=== PATIENT | male | born 1965 | race Caucasian/White ===

== ENCOUNTER 2018-12-31 00:50 | Inpatient (IN) | payer BC ==
[2018-12-31] MEDS ORDERED: SODIUM CHLORIDE 0.9% 1,000 ML IV STA (01:16)
[2018-12-31] MEDS ORDERED: ONDANSETRON 4 MG/2 ML VIAL IVP STA (01:16)
[2018-12-31 01:34] LABS: Basophils % (A) 0 %; Eosinophils # (A) 0.1 k/uL (0-0.7); Eosinophils % (A) 1 %; HGB 15.4 gm/dL (13.0-17.5); Lymphocytes # (A) 0.9 k/uL (1.0-4.8); Lymphocytes % (A) 7 %; MCH 30.9 pg (25.0-35.0); MCHC 33.5 g/dL (31.0-37.0); MCV 92.2 fL (80.0-100.0); Mean Platelet Volume 7.1; Monocytes # (A) 0.5 k/uL (0-1.0); Monocytes % (A) 4 %; Neutrophils # (A) 11.1 k/uL (1.3-7.7); Neutrophils % (A) 87 %; Platelet Count 266 k/uL (150-450); RBC 4.98 m/uL (4.30-5.90); RDW 13.5 % (11.5-15.5); WBC 12.7 k/uL (3.8-10.6)
[2018-12-31] MEDS ORDERED: MORPHINE SULFATE 4 MG/ML SYRINGE IV STA (01:35)
[2018-12-31 01:46] LABS: ALT 35 U/L (21-72); AST 42 U/L (17-59); African American GFR (CKD) >90 (>60 ml/min/1.73 sqM); Albumin 4.5 g/dL (3.5-5.0); Alkaline Phosphatase 84 U/L (38-126); Anion Gap 11 mmol/L; Blood Urea Nitrogen 22 mg/dL (9-20); Calcium 10.1 mg/dL (8.4-10.2); Carbon Dioxide 23 mmol/L (22-30); Chloride 104 mmol/L (98-107); Glucose 132 mg/dL (74-99); Potassium 4.2 mmol/L (3.5-5.1); Sodium 138 mmol/L (137-145); Total Bilirubin 1.2 mg/dL (0.2-1.3); Total Protein 7.6 g/dL (6.3-8.2)
[2018-12-31 02:08] LABS: Lipase 10954 U/L (23-300)
[2018-12-31 02:30] LABS: Amylase 1402 U/L (30-110)
--- NOTE | 2018-12-31 02:50 | CT ---
EXAM: CT Abdomen and Pelvis With Intravenous Contrast CLINICAL HISTORY: ITS.REASON CT Reason: abdominal pain TECHNIQUE: Axial computed tomography images of the abdomen and pelvis with intravenous contrast. CTDI is 16 mGy and DLP is 832 mGy-cm. This CT exam was performed using one or more of the following dose reduction techniques: automated exposure control, adjustment of the mA and/or kV according to patient size, and/or use of iterative reconstruction technique. COMPARISON: No relevant prior studies available. FINDINGS: Lung bases: No mass. No consolidation. ABDOMEN: Liver: Enlarged. Gallbladder and bile ducts: Unremarkable. Pancreas: Unremarkable. Spleen: Unremarkable. Adrenals: Unremarkable. Kidneys and ureters: Punctate stone in the right kidney. No hydronephrosis. Stomach and bowel: No bowel obstruction. Thickened duodenal wall. Colonic diverticulosis. There is smooth thickening of the sigmoid colonic wall. PELVIS: Appendix: No evidence of appendicitis. Bladder: Unremarkable. Reproductive: Unremarkable. ABDOMEN and PELVIS: Intraperitoneal space: Stranding and free fluid around the duodenum/pancreatic head.. Bones/joints: No acute fractures. Soft tissues: Unremarkable. Vasculature: No abdominal aortic aneurysm. Lymph nodes: No enlarged lymph nodes. IMPRESSION: 1. There is fat stranding and trace free fluid around the duodenum/pancreatic head. The duodenal wall is thickened, most likely infectious/inflammatory duodenitis. However cannot exclude groove pancreatitis given the location of the inflammation. 2. Punctate nonobstructive stone in the right kidney. 3. Hepatomegaly. 4. Colonic diverticulosis. 5. There is smooth thickening of the sigmoid colon without significant inflammatory changes (series 201 image 72). Recommend correlation with recent colonoscopy or consider obtaining colonoscopy to rule out neoplastic process.
[2018-12-31 03:25] LABS: Appearance,Urine Clear (Clear); Bilirubin,Urine Negative (Negative); Blood,Urine Negative (Negative); Color,Urine Yellow; Glucose,Urine (UA) Negative (Negative); Ketones,Urine 4+ (Negative); Leukocyte Esterase,Urine Negative (Negative); Nitrite,Urine Negative (Negative); Protein,Urine Trace (Negative); Urobilinogen,Urine <2.0 mg/dL (<2.0)
[2018-12-31] MEDS ORDERED: HYDROmorphone 0.5 MG/0.5 ML SYRINGE IVP STA (03:28)
--- NOTE | 2018-12-31 03:32 | ED ---
General Adult HPI - General Source: patient, family, RN notes reviewed, old records reviewed Mode of arrival: wheelchair Limitations: physical limitation <Daryl Ruffin - Last Filed: 12/31/18 04:21> <Sebastian Toth - Last Filed: 12/31/18 12:37> - General Chief complaint: Abdominal Pain Stated complaint: Abd Pain Time Seen by Provider: 12/31/18 01:15 - History of Present Illness Initial comments: 53-year-old male patient passed no history of appendectomy presents ED approximately 1 day of epigastric pain, nausea and vomiting. Patient denies any other complaints, denies a chest pain shortness of breath. Patient is poor they did have a small amount of alcohol intake today. Denies any other complaints. Systemic: Pt denies fatigue, fever/chills, rash. Pt denies weakness, night sweats, weight loss. Neuro: Pt denies headache, visual disturbances, syncope or pre-syncope. HEENT: Pt denies ocular discharge or irritation, otalgia, rhinorrhea, pharyngitis or notable lymphadenopathy. Cardiopulmonary: Pt denies chest pain, SOB, heart palpitations, dyspnea on exertion. Abdominal/GI: Pt denies abdominal pain, n/v/d. : Pt denies dysuria, burning w/ urination, frequency/urgency. Denies new onset urinary or bowel incontinence. MSK: Pt denies myalgia, loss of strength or function in extremities. Neuro: Pt denies new onset weakness, paresthesias. (Daryl Ruffin) - Related Data Home Medications Medication Instructions Recorded Confirmed Multivitamins, Thera [Multivitamin 1 tab PO DAILY 12/31/18 12/31/18 (formulary)] Allergies Allergy/AdvReac Type Severity Reaction Status Date / Time No Known Allergies Allergy Verified 12/31/18 07:05 Review of Systems ROS Other: All systems not noted in ROS Statement are negative. <Daryl Ruffin - Last Filed: 12/31/18 04:21> ROS Other: All systems not noted in ROS Statement are negative. <Sebastian Toth - Last Filed: 12/31/18 12:37> ROS Statement: Those systems with pertinent positive or pertinent negative responses have been documented in the HPI. Past Medical History Past Medical History: No Reported History History of Any Multi-Drug Resistant Organisms: None Reported Past Surgical History: Appendectomy Past Psychological History: No Psychological Hx Reported Smoking Status: Never smoker Past Alcohol Use History: None Reported Past Drug Use History: None Reported <Daryl Ruffin - Last Filed: 12/31/18 04:21> - Past Family History Father Additional Family Medical History / Comment(s): Gallstones and kidney stones and multiple family members <Sebastian Toth - Last Filed: 12/31/18 12:37> General Exam Limitations: physical limitation <Daryl Ruffin - Last Filed: 12/31/18 04:21> - General Exam Comments Initial Comments: Constitutional: NAD, AOX3, Pt has pleasant affect. HEENT: NC/AT, trachea midline, neck supple, no lymphadenopathy. Posterior pharynx non erythematous, without exudates. External ears appear normal, without discharge. Mucous membranes moist. Eyes PERRLA, EOM intact. There is no scleral icterus. No pallor noted. Cardiopulmonary: RRR, no murmurs, rubs or gallops, no JVD noted. Lungs CTAB in anterior and posterior lu. No peripheral edema. Abdominal exam: Abdomen soft and non-distended. Abdomen moderately tender to palpation in epigastric region, no other areas of abdominal pain. Bowel sounds active in LLQ. No hepatosplenomegaly. No ecchymosis Neuro: CN II-XII grossly intact. No nuchal rigidity. No raccon eyes, no bowen sign, no hemotympanum. No cervical spinal tenderness. MSK: No posterior calf tenderness bilaterally, homans sign negative bilaterally. Posterior tibialis and radial pulse +2 bilaterally. Sensation intact in upper and lower extremities. Full active ROM in upper and lower extremities, 5/5 stregnth. (Daryl Ruffin) Course Vital Signs 12/31/18 12/31/18 12/31/18 00:58 03:07 07:07 Temperature 97.3 F L Pulse Rate 53 L 84 61 Respiratory 18 18 16 Rate Blood Pressure 147/88 128/87 164/79 O2 Sat by Pulse 98 97 97 Oximetry Medical Decision Making - Lab Data Result diagrams: 12/31/18 01:22 12/31/18 01:22 <Daryl Ruffin - Last Filed: 12/31/18 04:21> - Lab Data Result diagrams: 12/31/18 08:54 12/31/18 08:54 <Sebastian Toth - Last Filed: 12/31/18 12:37> - Medical Decision Making 53-year-old male patient passed no history of appendectomy presents ED approximately 1 day of epigastric pain, nausea and vomiting. Patient denies any other complaints, denies a chest pain shortness of breath. Patient is poor they did have a small amount of alcoholl intake today. Denies any other complaints. Patient vital signs stable, afebrile. Physical exam displayed epigastric tenderness. Laboratory investigations revealed a leukocytosis of 12.7. CMP were not impressive. Lipase elevated at 10,954. Amylase elevated at 1402. UA negative. CT abdomen and pelvis displayed fat stranding near the duodenum states pancreatic head. Secondary pancreatitis. Also noticed CT was treated thickening of the sigmoid colon with recommendation of obtaining colonoscopy rule out neoplastic process. Patient admitted for acute pancreatitis. Case discussed with Dr. Melgar. (Daryl Ruffin) I saw this patient in conjunction with the physician emergency veterinary assistant. I performed independent history and physical exam. Agree with case management. (Sebastian Toth) - Lab Data Lab Results 12/31/18 12/31/18 12/31/18 Range/Units 01:22 01:22 01:22 WBC 12.7 H (3.8-10.6) k/uL RBC 4.98 (4.30-5.90) m/uL Hgb 15.4 (13.0-17.5) gm/dL Hct 46.0 (39.0-53.0) % MCV 92.2 (80.0-100.0) fL MCH 30.9 (25.0-35.0) pg MCHC 33.5 (31.0-37.0) g/dL RDW 13.5 (11.5-15.5) % Plt Count 266 (150-450) k/uL Neutrophils % 87 % Lymphocytes % 7 % Monocytes % 4 % Eosinophils % 1 % Basophils % 0 % Neutrophils # 11.1 H (1.3-7.7) k/uL Lymphocytes # 0.9 L (1.0-4.8) k/uL Monocytes # 0.5 (0-1.0) k/uL Eosinophils # 0.1 (0-0.7) k/uL Basophils # 0.0 (0-0.2) k/uL Sodium 138 (137-145) mmol/L Potassium 4.2 (3.5-5.1) mmol/L Chloride 104 (98-107) mmol/L Carbon Dioxide 23 (22-30) mmol/L Anion Gap 11 mmol/L BUN 22 H (9-20) mg/dL Creatinine 1.06 (0.66-1.25) mg/dL Est GFR (CKD-EPI)AfAm >90 (>60 ml/min/1.73 sqM) Est GFR (CKD-EPI)NonAf 80 (>60 ml/min/1.73 sqM) Glucose 132 H (74-99) mg/dL Plasma Lactic Acid [place] 1.5 (0.7-2.0) mmol/L Calcium 10.1 (8.4-10.2) mg/dL Total Bilirubin 1.2 (0.2-1.3) mg/dL AST 42 (17-59) U/L ALT 35 (21-72) U/L Alkaline Phosphatase 84 (38-126) U/L Total Protein 7.6 (6.3-8.2) g/dL Albumin 4.5 (3.5-5.0) g/dL Amylase 1402 H* (30-110) U/L Lipase 83736 H (23-300) U/L Urine Color Urine Appearance (Clear) Urine pH (5.0-8.0) Ur Specific [place] (1.001-1.035) Urine Protein (Negative) Urine Glucose (UA) (Negative) Urine Ketones (Negative) Urine Blood (Negative) Urine Nitrite (Negative) Urine Bilirubin (Negative) Urine Urobilinogen (<2.0) mg/dL Ur Leukocyte Esterase (Negative) 12/31/18 Range/Units 03:20 WBC (3.8-10.6) k/uL RBC (4.30-5.90) m/uL Hgb (13.0-17.5) gm/dL Hct (39.0-53.0) % MCV (80.0-100.0) fL MCH (25.0-35.0) pg MCHC (31.0-37.0) g/dL RDW (11.5-15.5) % Plt Count (150-450) k/uL Neutrophils % % Lymphocytes % % Monocytes % % Eosinophils % % Basophils % % Neutrophils # (1.3-7.7) k/uL Lymphocytes # (1.0-4.8) k/uL Monocytes # (0-1.0) k/uL Eosinophils # (0-0.7) k/uL Basophils # (0-0.2) k/uL Sodium (137-145) mmol/L Potassium (3.5-5.1) mmol/L Chloride (98-107) mmol/L Carbon Dioxide (22-30) mmol/L Anion Gap mmol/L BUN (9-20) mg/dL Creatinine (0.66-1.25) mg/dL Est GFR (CKD-EPI)AfAm (>60 ml/min/1.73 sqM) Est GFR (CKD-EPI)NonAf (>60 ml/min/1.73 sqM) Glucose (74-99) mg/dL Plasma Lactic Acid [place] (0.7-2.0) mmol/L Calcium (8.4-10.2) mg/dL Total Bilirubin (0.2-1.3) mg/dL AST (17-59) U/L ALT (21-72) U/L Alkaline Phosphatase (38-126) U/L Total Protein (6.3-8.2) g/dL Albumin (3.5-5.0) g/dL Amylase (30-110) U/L Lipase (23-300) U/L Urine Color Yellow Urine Appearance Clear (Clear) Urine pH 8.0 (5.0-8.0) Ur Specific [place] >1.050 H (1.001-1.035) Urine Protein Trace H (Negative) Urine Glucose (UA) Negative (Negative) Urine Ketones 4+ H (Negative) Urine Blood Negative (Negative) Urine Nitrite Negative (Negative) Urine Bilirubin Negative (Negative) Urine Urobilinogen <2.0 (<2.0) mg/dL Ur Leukocyte Esterase Negative (Negative) Disposition Is patient prescribed a controlled substance at d/c from ED?: No <Daryl Ruffin - Last Filed: 12/31/18 04:21> <Sebastian Toth - Last Filed: 12/31/18 12:37> Clinical Impression: Acute pancreatitis Disposition: ADMITTED IP TO THIS HOSP Condition: Serious
[2018-12-31] MEDS ORDERED: NALOXONE 0.4 MG/ML 1 ML VIAL IV PRN (03:33)
[2018-12-31] MEDS ORDERED: MORPHINE SULFATE 4 MG/ML SYRINGE IV PRN (03:40)
[2018-12-31] MEDS: ONDANSETRON 4 MG/2 ML VIAL IVP PRN ×2 (03:47→11:05)
[2018-12-31 03:48] LABS: Specific Gravity,Urine >1.050 (1.001-1.035)
[2018-12-31] MEDS ORDERED: LORazepam 2 MG/ML INJ IV PRN ×3 (04:09)
[2018-12-31] MEDS ORDERED: THIAMINE 100 MG/ML 2 ML VIAL IM STA (04:09)
[2018-12-31] MEDS ORDERED: HYDROmorphone 1 MG/ML 1 ML SYRINGE IVP STA (04:36)
[2018-12-31] MEDS: SODIUM CHLORIDE 0.9% 1,000 ML IV SCH ×3 (04:40→14:37)
--- NOTE | 2018-12-31 04:58 | P.HPIM ---
History of Present Illness H&P Date: 12/31/18 Patient is a 53-year-old male with no significant PMH who presents to the ED for sudden onset of epigastric abdominal pain with nausea and vomiting. The patient reports that he was in his usual state of health when he suddenly developed the 10 out of 10 burning like epigastric pain, nonradiating, with associated nausea and 3 episodes of vomiting. He notes that he has never had such symptoms befo re. The pain started shortly after he had his dinner yesterday at 6 PM. The patient strongly denied excessive alcohol use and reports drinking upwards of one shot or 1 beer daily. He further notes a very strong family history of gallstones though notes that he was never diagnosed with cholelithiasis. He otherwise denied chest pain, shortness of breath, fever, chills, diarrhea, or sick contacts. At time of interview, the patient reported continued abdominal pain, improved to 4 out of 10 with morphine and Dilaudid. The patient underwent an extensive evaluation in the ED with CT abdomen and pelvis revealing fat stranding of the pancreatic head consistent with pancreatitis, along with smooth thickening of the sigmoid colon and hepatomegaly. Laboratory evaluation revealed a lipase level of 10,954, WBC 12.7, hemoglobin 15.4, creatinine 1.06, and glucose 132. The patient is being admitted to the medicine service for acute pancreatitis. Review of Systems Pertinent positives and negatives as discussed in HPI, a complete review of systems was performed and all other systems are negative. Past Medical History Past Medical History: No Reported History History of Any Multi-Drug Resistant Organisms: None Reported Past Surgical History: Appendectomy Past Psychological History: No Psychological Hx Reported Smoking Status: Never smoker Past Alcohol Use History: None Reported Past Drug Use History: None Reported - Past Family History Father Additional Family Medical History / Comment(s): Gallstones and kidney stones and multiple family members Medications and Allergies Home Medications Medication Instructions Recorded Confirmed Type No Known Home Medications 12/31/18 12/31/18 History Allergies Allergy/AdvReac Type Severity Reaction Status Date / Time No Known Allergies Allergy Verified 12/31/18 01:03 Physical Exam Vitals: Vital Signs Temp Pulse Resp BP Pulse Ox 12/31/18 03:07 84 18 128/87 97 12/31/18 00:58 97.3 F L 53 L 18 147/88 98 Intake and Output 12/30/18 12/30/18 12/31/18 14:59 22:59 06:59 Other: Weight 88.451 kg General: non toxic, in moderate distress from pain, appears at stated age, normal weight Derm: no unusual rashes/lesions no unusual ecchymoses, warm, dry Head: atraumatic, normocephalic, symmetric Eyes: EOMI, no lid lag, anicteric sclera, pupils equal round reactive to light ENT: Nose and ears atraumatic, no thrush, no pharyngeal erythema Neck: No thyromegaly, no cervical lymphadenopathy, trachea midline, supple Mouth: no lip lesion, mucus membranes moist Cardiovascular: S1S2 reg, no murmur, positive posterior tibial pulse bilateral, no edema, capillary refill less than 2 seconds Lungs: CTA bilateral, no rhonchi, no rales , no accessory muscle use Abdominal: soft, epigastric severe tenderness palpation, no guarding, no appreciable organomegaly, normal bowel sounds, no right upper quadrant tenderness Ext: no gross muscle atrophy, muscle strength 5 out of 5 in all 4 extremities grossly, no contractures, Neuro: CN II-XI grossly intact, light touch intact all 4 extremities, finger to nose within normal limits, Psych: Alert, oriented, appropriate affect Results CBC & Chem 7: 12/31/18 01:22 12/31/18 01:22 Labs: Abnormal Lab Results - Last 24 Hours (Table) 12/31/18 12/31/18 12/31/18 Range/Units 01:22 01:22 03:20 WBC 12.7 H (3.8-10.6) k/uL Neutrophils # 11.1 H (1.3-7.7) k/uL Lymphocytes # 0.9 L (1.0-4.8) k/uL BUN 22 H (9-20) mg/dL Glucose 132 H (74-99) mg/dL Amylase 1402 H* (30-110) U/L Lipase 26684 H (23-300) U/L Ur Specific [place] >1.050 H (1.001-1.035) Urine Protein Trace H (Negative) Urine Ketones 4+ H (Negative) Assessment and Plan Plan: Acute pancreatitis, more likely gallstone related as opposed to alcohol -Nothing by mouth for now -Continue with Dilaudid [id number] and when necessary -GI consult -Monitor lipase levels -Continue with significant IV hydration Small thickening of sigmoid colon -Colonoscopy recommended -Patient may receive it as an outpatient Leukocytosis, likely stress related -We'll monitor for now DVT prophylaxis -Heparin The patient is admitted with an anticipated greater than 2 midnight stay for evaluation of pancreatitis. CODE STATUS:Full Code Discussed with: Patient, Anticipated discharge date: 01/03/[address]: Home A total of 45 minutes was spent on the care of this complex patient more than 50% of the time was spent in counseling and care coordination.
[2018-12-31] MEDS: HYDROmorphone 1 MG/ML 1 ML SYRINGE IVP PRN ×5 (06:55→22:15)
[2018-12-31] MEDS: HEPARIN SODIUM,PORCINE 5,000 UNIT/ML 1 ML VIAL SQ SCH ×2 (09:25→16:58)
[2018-12-31 10:16] LABS: HCT 44.4 % (39.0-53.0); HGB 14.4 gm/dL (13.0-17.5); MCH 30.5 pg (25.0-35.0); MCHC 32.4 g/dL (31.0-37.0); MCV 94.1 fL (80.0-100.0); Platelet Count 253 k/uL (150-450); RBC 4.72 m/uL (4.30-5.90); RDW 13.6 % (11.5-15.5); WBC 10.1 k/uL (3.8-10.6)
[2018-12-31 10:40] LABS: ALT 29 U/L (21-72); AST 31 U/L (17-59); African American GFR (CKD) >90 (>60 ml/min/1.73 sqM); Albumin 3.9 g/dL (3.5-5.0); Alkaline Phosphatase 66 U/L (38-126); Anion Gap 6 mmol/L; Blood Urea Nitrogen 19 mg/dL (9-20); Calcium 9.3 mg/dL (8.4-10.2); Carbon Dioxide 27 mmol/L (22-30); Chloride 106 mmol/L (98-107); Glucose 127 mg/dL (74-99); Magnesium 1.9 mg/dL (1.6-2.3); Sodium 139 mmol/L (137-145); Total Bilirubin 0.9 mg/dL (0.2-1.3); Total Protein 6.7 g/dL (6.3-8.2)
--- NOTE | 2018-12-31 12:55 | P.CONS ---
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 Intermittent nausea vomiting without hematemesis but he's or melena. No history of peptic ulcer disease or EGD. Patient states in the past when he had acute appendicitis there was some concern for possible underlying Crohn's disease. He follows engineer of system development Dr. Ferro as had multiple colonoscopies with him all have supported no underlying IBD diagnosis. Last colonoscopy was 3 months ago and reported as normal with no polypectomies. Colonic diverticulosis. No aspirin and NSAIDs alcohol. No history of autoimmune disorders. No history of weight loss. Appetite has been diminished over the last month. Heartburn is relieved with Tums. No history of pancreatitis. Admission white count 12.7 presently 10.1. Hemoglobin 15.4. Platelet 266. BUN 22. Creatinine 1.0. LFTs normal. Amylase 1402. Lipase 10,954. CT abdomen and pelvis fat stranding trace fluid around the duodenum pancreatic head. Duodenal wall thickening most likely infectious inflammatory duodenitis however groove pancreatitis cannot be excluded. Colonic diverticulosis. Smooth thickening of the sigmoid colon without significant inflammatory changes. Review of Systems Constitutional: Denies fever, chills, sweats, weight gain, or loss. HEENT: Negative for migraines, blurred vision or loss, earaches, drainage, tinnitus, oral mucosal lesions, dysphagia, or odynophagia. Cardiac: Negative for chest pain, arrhythmias, or palpitation. Respiratory: Negative for shortness of breath, hemoptysis, cough, or sputum production. Gastrointestinal: See HPI for pertinent findings. Genitourinary: Negative for hematuria, urgency, frequency, polyuria, dysuria, or penile discharge. Musculoskeletal: Negative for muscle aches, swelling, arthritis, and arthralgias. Neurologic: Negative for stroke or TIA. Endocrine: Negative for thyroid problems. Skin: Negative for rash or itching. Psychiatric: Negative history for depression and anxiety Past Medical History Past Medical History: No Reported History Additional Past Medical History / Comment(s): IBS History of Any Multi-Drug Resistant Organisms: None Reported Past Surgical History: Appendectomy Past Psychological History: No Psychological Hx Reported Smoking Status: Former smoker Past Alcohol Use History: Occasional Additional Past Alcohol Use History / Comment(s): Drinks alcohol 2-3x weekly per Past Drug Use History: None Reported - Past Family History Father Additional Family Medical History / Comment(s): Gallstones and kidney stones and multiple family members Medications and Allergies Home Medications Medication Instructions Recorded Confirmed Type Multivitamins, Thera [Multivitamin 1 tab PO DAILY 12/31/18 12/31/18 History (formulary)] Allergies Allergy/AdvReac Type Severity Reaction Status Date / Time No Known Allergies Allergy Verified 12/31/18 07:05 Physical Exam Vitals: Vital Signs Temp Pulse Pulse Resp BP BP Pulse Ox 12/31/18 07:42 97.1 F L 51 L 16 112/62 99 12/31/18 07:07 61 16 164/79 97 12/31/18 03:07 84 18 128/87 97 12/31/18 00:58 97.3 F L 53 L 18 147/88 98 Intake and Output 12/30/18 12/31/18 12/31/18 22:59 06:59 14:59 Other: Weight 88.451 kg General appearance: The patient is alert, oriented, in no acute distress. HET: Head is normocephalic and atraumatic. Pupils are equal and reactive. Orop harynx is clear without lesions. Neck: Supple without lymphadenopathy. Trachea midline. Heart: S1 S2. Regular rate and rhythm. Lungs: No crackles or wheezes are heard. Abdomen: Soft, moderate tenderness to the mid epigastrium, nondistended with bowel sounds. No peritoneal signs. No palpable organomegaly or masses. Extremities: Normal skin color and turgor. No cyanosis, rash, ulceration, club marisa, or edema. Radial and pedal pulses are 2/4 bilaterally. Neurological: No focal deficits. Strength and sensation are grossly intact. Results CBC & Chem 7: 12/31/18 08:54 12/31/18 08:54 Labs: Abnormal Lab Results - Last 24 Hours (Table) 12/31/18 12/31/18 12/31/18 Range/Units 01:22 01:22 03:20 WBC 12.7 H (3.8-10.6) k/uL Neutrophils # 11.1 H (1.3-7.7) k/uL Lymphocytes # 0.9 L (1.0-4.8) k/uL BUN 22 H (9-20) mg/dL Glucose 132 H (74-99) mg/dL Amylase 1402 H* (30-110) U/L Lipase 14642 H (23-300) U/L Ur Specific [place] >1.050 H (1.001-1.035) Urine Protein Trace H (Negative) Urine Ketones 4+ H (Negative) 12/31/18 Range/Units 08:54 WBC (3.8-10.6) k/uL Neutrophils # (1.3-7.7) k/uL Lymphocytes # (1.0-4.8) k/uL BUN (9-20) mg/dL Glucose 127 H (74-99) mg/dL Amylase (30-110) U/L Lipase (23-300) U/L Ur Specific [place] (1.001-1.035) Urine Protein (Negative) Urine Ketones (Negative) CT scan - abdomen: report reviewed (Dr. Casey) Assessment and Plan (1) Acute pancreatitis Current Visit: Yes Status: Acute Code(s): K85.90 - ACUTE PANCREATITIS WITHOUT NECROSIS OR INFECTION, UNSP SNOMED Code(s): 166064256 Plan: 1. Protonix 40 mg IV twice daily. Nothing by mouth except medications. Daily CBC CMP amylase lipase. Will check triglycerides, MAN, IgG subclass 1-4 for autoimmune evaluation. Proceed with EGD evaluation tomorrow to rule out underlying peptic ulcer disease. IV hydration. Supportive measures. The engineer of system development has discussed the risks, benefits and alternative therapies for the above-mentioned procedure and for both sedation/analgesia as well as necessary blood product administration, if indicated, as they pertain to this patient. The patient has indicated understanding and acceptance of the risks and procedures discussed. Thank you for this kind referral and the opportunity to participate in the care of your patient. This consultation was discussed with Dr. Casey. The impression and plan of care have been directed as dictated.
[2018-12-31] MEDS: PANTOPRAZOLE 40 MG/10 ML VIAL IVP SCH (13:14)
[2018-12-31 13:32] LABS: Triglycerides 39 mg/dL (<150)
[2018-12-31 13:42] LABS: Amylase 647 U/L (30-110)
[2018-12-31 13:53] LABS: Lipase 4553 U/L (23-300)
--- NOTE | 2018-12-31 14:29 | US ---
EXAMINATION TYPE: US abdomen limited DATE OF EXAM: 12/31/2018 COMPARISON: CT CLINICAL HISTORY: pancreatitis. EXAM MEASUREMENTS: Liver Length: 12.9 cm Gallbladder Wall: 0.3 cm CBD: 0.5 cm Right Kidney: 11.7 x 4.4 x 5.5 cm Pancreas: Tail obscured by overlying bowel gas Liver: hyperechoic round structure measuring 1.3 x 1.1 x 1.1cm Gallbladder: probable polyp measuring 0.3cm, not seen in LLD Evidence for sonographic Albarran's sign: no CBD: wnl Right Kidney: wnl IMPRESSION: 1. There is a hyperechoic structure within the liver measuring 1.3 cm which may represent a hemangiom a. This could be correlated with MRI scan with hemangioma protocol. 2. Probable tiny gallbladder polyp. 3. Pancreas is obscured by bowel gas.
[2018-12-31] MEDS: THIAMINE 100 MG TAB PO SCH ×2 (16:58→18:19)
[2019-01-01] MEDS: PANTOPRAZOLE 40 MG/10 ML VIAL IVP SCH ×3 (00:26→19:54)
[2019-01-01] MEDS: SODIUM CHLORIDE 0.9% 1,000 ML IV SCH ×6 (00:28→23:25)
[2019-01-01] MEDS: HEPARIN SODIUM,PORCINE 5,000 UNIT/ML 1 ML VIAL SQ SCH ×4 (00:34→23:25)
[2019-01-01] MEDS: HYDROmorphone 1 MG/ML 1 ML SYRINGE IVP PRN ×2 (02:30→05:47)
[2019-01-01] MEDS: ONDANSETRON 4 MG/2 ML VIAL IVP PRN ×2 (04:45→23:34)
[2019-01-01] MEDS: THIAMINE 100 MG TAB PO SCH ×2 (08:30→16:03)
[2019-01-01 09:21] LABS: ALT 29 U/L (21-72); AST 29 U/L (17-59); African American GFR (CKD) >90 (>60 ml/min/1.73 sqM); Albumin 3.3 g/dL (3.5-5.0); Alkaline Phosphatase 56 U/L (38-126); Anion Gap 5 mmol/L; Blood Urea Nitrogen 18 mg/dL (9-20); Calcium 8.6 mg/dL (8.4-10.2); Carbon Dioxide 26 mmol/L (22-30); Chloride 109 mmol/L (98-107); Glucose 93 mg/dL (74-99); Potassium 3.8 mmol/L (3.5-5.1); Sodium 140 mmol/L (137-145); Total Bilirubin 0.6 mg/dL (0.2-1.3); Total Protein 5.9 g/dL (6.3-8.2)
--- NOTE | 2019-01-01 10:52 | P.PN ---
Subjective Progress Note Date: 01/01/19 Principal diagnosis: pancreatitis Patient was seen and examined. No acute events overnight. Patient reports slightly improved abdominal pain, 4-5 out of 10 in severity. Comes in waves, can be 10 out of 10 at its peak. Patient also reports nausea but no vomiting. Currently nothing by mouth for EGD scheduled for 12 PM. He denies chest pain, shortness of breath or palpitations. No fever or chills. Objective - Vital Signs Vital signs: Vital Signs Temp 97.8 F 01/01/19 06:33 Pulse 50 L 01/01/19 06:33 Resp 17 01/01/19 06:33 BP 138/78 01/01/19 06:33 Pulse Ox 97 01/01/19 06:33 Intake & Output 12/31/18 01/01/19 01/01/19 18:59 06:59 18:59 Intake Total 0 Output Total 1 Balance -1 Intake: Oral 0 Output: Emesis 1 Other: # Voids 3 1 - Exam General: [non toxic], [no distress], [appears at stated age] Derm: [warm], [dry] Head: [atraumatic], [normocephalic], [symmetric] Eyes: [EOMI], [no lid lag], [anicteric sclera] Mouth: [no lip lesion], [mucus membranes moist] Cardiovascular: [S1S2 reg], [bradycardia], [positive DP pulse bilateral], Lungs: [CTA bilateral], [no rhonchi, no rales] , [no accessory muscle use] Abdominal: [soft], [tenderness to palpation of the epigastric area without rebound], [no guarding], [no appreciable organomegaly] Ext: [no gross muscle atrophy], [no edema], [no contractures] Neuro: [no focal neuro deficits] Psych: [Alert], [oriented], [appropriate affect] - Labs CBC & Chem 7: 12/31/18 08:54 01/01/19 08:14 Labs: Abnormal Lab Results - Last 24 Hours (Table) 12/31/18 12/31/18 Range/Units 08:54 08:54 Glucose 127 H (74-99) mg/dL Amylase 647 H* (30-110) U/L Lipase 4553 H (23-300) U/L Assessment and Plan Assessment: Assessment and Plan Acute pancreatitis Thickening of the sigmoid colon Amylase 1402-647, lipase 4553-647. LFT shows no obstruction. CT abdomen pelvis shows duodenal wall thickening, hepatomegaly, diverticulosis, smooth thickening of the sigmoid colon. GI consulted, plans for EGD to evaluate for PUD today. Plans: Start Dilaudid 0.5 mg IV every 2 hours as needed for severe pain. Zofran as needed for nausea and vomiting. Start Protonix IV. Continue normal saline at 180 mL per hour. Follow GI recommendations. Has had colonoscopy in the outpatient setting. Follows GI for surveillance. Plans: Follow GI consult Plans for EGD. Hopefully would be able to advance diet to clear liquids after EGD. Patient is pending clinical improvement. Likely DC in 2-3 days.
[2019-01-01] MEDS: HYDROmorphone 0.5 MG/0.5 ML SYRINGE IVP PRN ×5 (10:56→21:57)
[2019-01-01 11:14] LABS: IgG Subclass 3 44.4 mg/dL (11.0-85.0); IgG Subclass 4 19.5 mg/dL (3.0-175.0)
[2019-01-01] MEDS ORDERED: LIDOCAINE 1% INJ 10MG/ML (20 ML MDV) ONE (11:32)
[2019-01-01] MEDS ORDERED: GLYCOPYRROLATE 0.2 MG/ML 2 ML VIAL ONE (11:32)
[2019-01-01] MEDS ORDERED: PROPOFOL 10 MG/ML 20 ML VIAL IV ONE (11:32)
[2019-01-01] MEDS ORDERED: IV FLUID CONTINUATION 1,000 ML IV ONE ×2 (11:33)
--- NOTE | 2019-01-01 12:10 | P.PCN ---
Date of Procedure: 01/01/19 Procedure(s) Performed: Procedure: Esophagogastroduodenoscopy. Preoperative diagnosis: Acute pancreatitis and abnormal CT of the abdomen, rule out penetrating ulcer. Postoperative diagnosis: 1. Small sliding hiatal hernia with no obvious esophagitis or complicated reflux disease. 2. Minimal duodenitis with no evidence of ulcers or other pathology. Preparation and sedation: Was provided by anesthesia. Brief clinical history: The patient is a 53-year-old male presents to the hospital with acute epigastric upper abdominal pain associated with heartburn and indigestion-type symptoms for 1 month. Intermittent nausea, vomiting without hematemesis. No history of peptic ulcer disease or EGD. Admission white count 12.7 presently 10.1. Hemoglobin 15.4. Platelet 266. BUN 22. Creatinine 1.0. LFTs normal. Amylase 1402. Lipase 10,954. No aspirin and NSAIDs alcohol. No history of autoimmune disorders. No history of weight loss. Appetite has been diminished over the last month. Heartburn is relieved with Tums. No history of pancreatitis. CT abdomen and pelvis showed fat stranding, trace fluid around the duodenum pancreatic head. Duodenal wall thickening most likely infectious/ inflammatory duodenitis, however, groove pancreatitis cannot be excluded according to radiologist. Colonic diverticulosis. Smooth thickening of the sigmoid colon without significant inflammatory changes. Other details are summarized in the history and physical and dictated consultation and progress notes. This evaluation is to rule out penetrating ulcer. Procedure: With the patient on his left lateral decubitus position and after informed consent and adequate sedation, I passed the Olympus-GIF H190 video upper endoscope through the cricopharyngeus down the esophagus. There was a small sliding hiatal hernia with no obvious esophagitis or complicated reflux disease. The endoscope was then passed into the stomach which was insufflated with air and inspected in detail including the retroflex view in the cardia. No obvious abnormalities were seen. Pyloric channel did not show any ulcers. D uodenal bulb showed minimal erythema but no ulcers or erosions. Post bulbar area and descending duodenum appeared within normal limits. I did not see any ulcers or any inflammatory or infectious areas as suggested on CT. No biopsies were indicated then the endoscope was withdrawn. The patient tolerated the procedure well. Plan: The patient was reassured and I discussed with his family. At this time, the etiology of his pancreatitis cannot be ascribed to penetrating ulcer. Other etiologies including autoimmune pancreatitis would have to be kept in the consideration. We will continue to follow with you with interest.
[2019-01-02] MEDS: HYDROmorphone 0.5 MG/0.5 ML SYRINGE IVP PRN ×3 (00:17→07:21)
[2019-01-02] MEDS: SODIUM CHLORIDE 0.9% 1,000 ML IV SCH ×4 (04:53→21:25)
[2019-01-02] MEDS: ONDANSETRON 4 MG/2 ML VIAL IVP PRN (07:21)
[2019-01-02] MEDS: HEPARIN SODIUM,PORCINE 5,000 UNIT/ML 1 ML VIAL SQ SCH ×2 (07:22→15:11)
[2019-01-02] MEDS: PANTOPRAZOLE 40 MG/10 ML VIAL IVP SCH ×2 (07:22→21:23)
[2019-01-02] MEDS: THIAMINE 100 MG TAB PO SCH ×2 (07:22→16:29)
[2019-01-02] MEDS ORDERED: ONDANSETRON 4 MG/2 ML VIAL IVP PRN (09:27)
--- NOTE | 2019-01-02 09:41 | P.PN ---
Subjective Progress Note Date: 01/02/19 Principal diagnosis: pancreatitis Patient was seen and examined. No acute events overnight. Patient reports mild improvement in his pain. Abdominal pain is 3-5 out of 10 in severity with current pain regimen. Complains of waves of abdominal pain associated with intense nausea. States that he gets very nauseous when eating clear liquids. He denies any fever or chills. He denies any chest pain, shortness of breath or palpitations. Objective - Vital Signs Vital signs: Vital Signs Temp 97.7 F 01/02/19 05:00 Pulse 54 L 01/02/19 05:00 Resp 18 01/02/19 08:00 BP 128/78 01/02/19 05:00 Pulse Ox 96 01/02/19 05:00 Intake & Output 01/01/19 01/02/19 01/02/19 18:59 06:59 18:59 Intake Total 400 1000 Balance 400 1000 Intake: IV 400 Oral 1000 Other: # Voids 1 2 - Exam General: [non toxic], [no distress], [appears at stated age] Derm: [warm], [dry] Head: [atraumatic], [normocephalic], [symmetric] Eyes: [EOMI], [no lid lag], [anicteric sclera] Mouth: [no lip lesion], [mucus membranes moist] Cardiovascular: [S1S2 reg], [bradycardia], [positive DP pulse bilateral], Lungs: [CTA bilateral], [no rhonchi, no rales] , [no accessory muscle use] Abdominal: [soft], [tenderness to palpation of the epigastric area without rebound, improved], [no guarding], [no appreciable organomegaly] Ext: [no gross muscle atrophy], [no edema], [no contractures] Neuro: [no focal neuro deficits] Psych: [Alert], [oriented], [appropriate affect] - Labs CBC & Chem 7: 12/31/18 08:54 01/01/19 08:14 Labs: Abnormal Lab Results - Last 24 Hours (Table) 01/01/19 Range/Units 08:14 Lipase 810 H (23-300) U/L Assessment and Plan Assessment: Assessment and Plan Acute pancreatitis Thickening of the sigmoid colon Amylase 1402-647, lipase 4553-810. LFT shows no obstruction. CT abdomen pelvis shows duodenal wall thickening, hepatomegaly, diverticulosis, smooth thickening of the sigmoid colon. GI consulted, underwent EGD yesterday, small hiatal hernia and duodenal erythema seen. Plans: Increase Dilaudid 1 mg IV every 3 hours as needed for severe pain. Change Zofran from every 8 hours to every 6 hours. continue Protonix IV. Continue normal saline at 180 mL per hour. Clear liquid diet and advance. Follow GI recommendations. Has had colonoscopy in the outpatient setting. Follows GI for surveillance. Plans: Follow GI consult Patient is pending clinical improvement. Likely DC in 2-3 days.
[2019-01-02] MEDS: HYDROmorphone 1 MG/ML 1 ML SYRINGE IVP PRN ×2 (09:57→15:11)
[2019-01-03] MEDS: HEPARIN SODIUM,PORCINE 5,000 UNIT/ML 1 ML VIAL SQ SCH ×2 (00:13→08:19)
[2019-01-03] MEDS: HYDROmorphone 1 MG/ML 1 ML SYRINGE IVP PRN (04:52)
[2019-01-03] MEDS: SODIUM CHLORIDE 0.9% 1,000 ML IV SCH ×2 (04:53→09:19)
[2019-01-03] MEDS: PANTOPRAZOLE 40 MG/10 ML VIAL IVP SCH (08:19)
[2019-01-03] MEDS: THIAMINE 100 MG TAB PO SCH (08:19)
--- NOTE | 2019-01-03 12:24 | P.DS ---
Providers Date of admission: 12/31/18 04:05 Expected date of discharge: 01/03/19 Attending physician: Martha Heredia MD Consults: 12/31/18 03:33 Consult Physician Stat Consulting Provider: Goyo Casey Consult Reason/Comments: acute pancreatitis Do you want consulting provider notified?: Yes Primary care physician: Mikala [facility] Course: Patient is a 53-year-old male with no significant PMH who presents to the ED for sudden onset of epigastric abdominal pain with nausea and vomiting. The patient reports that he was in his usual state of health when he suddenly developed the 10 out of 10 burning like epigastric pain, nonradiating, with associated nausea and 3 episodes of vomiting. He notes that he has never had such symptoms before. The pain started shortly after he had his dinner yesterday at 6 PM. The patient strongly denied excessive alcohol use and reports drinking upwards of one shot or 1 beer daily. He further notes a very strong family history of gallstones though notes that he was never diagnosed with cholelithiasis. He otherwise denied chest pain, shortness of breath, fever, chills, diarrhea, or sick contacts. At time of interview, the patient reported continued abdominal pain, improved to 4 out of 10 with morphine and Dilaudid. The patient underwent an extensive evaluation in the ED with CT abdomen and pelvis revealing fat stranding of the pancreatic head consistent with pancreatitis, along with smooth thickening of the sigmoid colon and hepatomegaly. Laboratory evaluation revealed a lipase level of 10,954, WBC 12.7, hemoglobin 15.4, creatinine 1.06, and glucose 132. The patient is being admitted to the medicine service for acute pancreatitis. With regard to his pancreatitis, amylase trended down from 1402 08/20/1946. Lipase trended down from 4553-810. LFT showed no obstruction. CT of the abdomen pelvis showed duodenal thickening, hepatomegaly, diverticulosis and smooth thickening of the sigmoid colon. Gastroenterology was consulted and recommended EGD to exclude peptic ulcer disease as cause of pancreatitis. EGD showed small hiatal hernia and duodenal erythema. Patient's pain was controlled with Dilaudid 1 mg IV every 3 hours as needed for severe pain. He was given Zofran for nausea and vomiting. He was given Protonix IV. Patient was given normal saline at 180 mL per hour. Patient was given clear liquid diet and advance. Patient was seen and examined. No acute events overnight. Patient reports incredible improvement in his abdominal pain since the last couple of days. Pain is 0 out of 10, required no Dilaudid overnight. He denies any nausea or vomiting. Requesting a normal diet. Would like to go home. He denies any chest pain, shortness of breath or palpitations. General: [non toxic], [no distress], [appears at stated age] Derm: [warm], [dry] Head: [atraumatic], [normocephalic], [symmetric] Eyes: [EOMI], [no lid lag], [anicteric sclera] Mouth: [no lip lesion], [mucus membranes moist] Cardiovascular: [S1S2 reg], [bradycardia], [positive DP pulse bilateral], Lungs: [CTA bilateral], [no rhonchi, no rales] , [no accessory muscle use] Abdominal: [soft], [nontender to palpation], [no guarding], [no appreciable organomegaly] Ext: [no gross muscle atrophy], [no edema], [no contractures] Neuro: [no focal neuro deficits] Psych: [Alert], [oriented], [appropriate affect] Assessment and Plan Acute pancreatitis Thickening of the sigmoid colon Amylase 1402-647, lipase 4553-810. LFT shows no obstruction. CT abdomen pelvis shows duodenal wall thickening, hepatomegaly, diverticulosis, smooth thickening of the sigmoid colon. GI consulted, underwent EGD yesterday, small hiatal hernia and duodenal erythema seen. Plans: Increase Dilaudid 1 mg IV every 3 hours as needed for severe pain. Change Zofran from every 8 hours to every 6 hours. Continue Protonix IV. Continue normal saline at 180 mL per hour. Clear liquid diet and advance. Follow GI recommendations. Has had colonoscopy in the outpatient setting. Follows GI for surveillance. Plans: Follow GI consult Patient is pending clinical improvement. Likely DC today if able to tolerate soft diet. Pertinent Studies: CT abdomen and pelvis, abdominal ultrasound Procedures: Upper endoscopy Patient Condition at Discharge: Stable Plan - Discharge Summary Discharge Rx Participant: No New Discharge Prescriptions: New HYDROcodone/APAP 10-325MG [[place] 10-325] 1 tab PO Q4HR PRN 3 Days #18 tab PRN Reason: Severe Pain Continue Multivitamins, Thera [Multivitamin (formulary)] 1 tab PO DAILY Discharge Medication List Multivitamins, Thera [Multivitamin (formulary)] 1 tab PO DAILY 12/31/18 [History] HYDROcodone/APAP 10-325MG [[place] 10-325] 1 tab PO Q4HR PRN 3 Days #18 tab 01/03/19 [Rx] Follow up Appointment(s)/Referral(s): Mikala Salas MD [Primary Care Provider] - 1-2 days Sanford Hummel MD [STAFF PHYSICIAN] - 1 Week Activity/Diet/Wound Care/Special Instructions: Diet: Soft Follow-up with PCP within 1-2 days of discharge. Follow-up with gastroenterology within 1 week of discharge. Take all medications as advised. Discharge Disposition: HOME SELF-CARE
[2019-01-03 13:35] VITALS: BP 135/85; PULSE 62; RESP 16; TEMP 98.8
== END 2019-01-03 16:21 | disposition home or self-care (01) | DRG 440 ==
LOC: EC 00:50 → 4MS4W 04:05
PROVIDERS: ADMIT Internal Medicine; ATTEND Internal Medicine
PROC: 0DJ08ZZ Inspection of Upper Intestinal Tract, Via Natural or Artificial Opening Endoscopic (ICD-10-PCS; principal; 2019-01-01 12:10)
DX: K85.90 Acute pancreatitis without necrosis or infection, unspecified (principal); R16.0 Hepatomegaly, not elsewhere classified; K58.9 Irritable bowel syndrome, unspecified; K57.30 Diverticulosis of large intestine without perforation or abscess without bleeding; K44.9 Diaphragmatic hernia without obstruction or gangrene; K29.80 Duodenitis without bleeding; K21.9 Gastro-esophageal reflux disease without esophagitis; D72.829 Elevated white blood cell count, unspecified; Z87.891 Personal history of nicotine dependence; Z90.49 Acquired absence of other specified parts of digestive tract
CPT/HCPCS: 36415; 43235; 74177; 76705; 80053; 81003; 82150; 82787; 83605; 83690; 83735; 84478; 85025; 85027; 86038; 96361; 96374; 96375; 96376; 99285